=== PATIENT | male | born 1945 | race Caucasian/White ===

== ENCOUNTER 2018-04-19 05:27 | Inpatient (IN) | payer OTHER ==
[~2018-04-19] VITALS: Ht 170.2 cm; Wt 78.8 kg
[2018-04-19] VITALS (7 sets, daily range): BP systolic 101–161; BP diastolic 60–99
--- NOTE | ~2018-04-19 | HC ---
[facility] [place] [address] CONSULTATION Name: EDWARD THOMAS Room #: 360-P ADM IN M.R.#: [id number] Admission: 04/19/18 Attend Phys: Lila Couch Discharge: Date of : 49 Report #: [id number] THIS REPORT FOR: //name// CC: Sher Couch DATE OF SERVICE: 04/19/2018 HISTORY OF PRESENT ILLNESS: The patient is a 73-year-old white male, had complaints of the room spinning, problems with walking, slurred speech. He was noted to have ataxia and dysarthria. He was admitted to [facility]. Neurology saw him. MRI consistent with multicentric cerebellar CVAs. He was noted to have a right superior cerebellar CVA and a left inferior cerebellar CVA. The patient is right-handed. We are seeing him in rehabilitation medicine consultation. PAST MEDICAL HISTORY: Relatively benign. He has had an appendectomy, diskectomy. He does have a history of hypertension. He did have ulcers cauterized approximately a year ago. MEDICATIONS: Please see the full medication listing. This includes vitamins, herbals, and supplements. ALLERGIES: No known drug allergies. HABITS: No history of tobacco or alcohol abuse. SOCIAL HISTORY: He lives in a house with his , 3 steps in, did not utilize any gait aids. Both he and his are retired. He notes she could give him some assistance if needed. REVIEW OF SYSTEMS: Did not offer any current complaints of chest pain, shortness of breath, or abdominal discomfort. He notes he has some issues with his balance, some slurring of speech. PHYSICAL EXAMINATION: GENERAL: He is a pleasant 73-year-old white male of slender build, no obvious distress. VITAL SIGNS: Last recorded temperature is 98.5, pulse is 83, respirations 20, and blood pressure is 161/99. HEENT: Facies appeared symmetric. EOMs are full. He may have a little bit of lateral and gaze nystagmus. EXTREMITIES: He has functional range of motion of both upper extremities. He appears to have some difficulty with fine finger dexterity of the right upper extremity more than left upper extremity. Ggwxot-im-llwu was reasonably intact. Lower extremities, no focal calf swelling. Good strength probably a grade 4/[address] [address] CONSULTATION Name: EDWARD THOMAS Room #: [address] [place] [address] IN M.R.#: [id number] Admission: 04/19/18 Attend Phys: Lila Couch Discharge: Date of : 49 Report #: [id number] bilaterally to 4+/5 bilaterally. He appeared to do reasonably well with mtkn-wr-vpgl. No clonus. He does have concerns with his balance in getting up. ASSESSMENT: The patient is a 73-year-old white male with the following problem list: 1. Acute/subacute bilateral cerebellar cerebrovascular accidents. 2. Ataxia and dysarthria. 3. Gait instability. 4. Rule out dysphagia. Speech therapy currently involved. 5. Hypertension. 6. Prior medical history, otherwise, as noted above. PLAN: Therapy evaluations are currently underway. He certainly may be a good candidate for an acute in-hospital inpatient rehabilitation stay as he further medically stabilizes. We will need to see what his deficits are and proceed from there. We will be glad to follow along with you regarding his rehab therapy needs. By: 1305 0114 Jama Malloy MD /PMT
--- NOTE | ~2018-04-19 | EKG ---
[facility] [place] [address] ELECTROCARDIOGRAM REPORT Name: EDWARD THOMAS [id number] Admission: 04/19/18 Attend Phys: Discharge: Date of : 49 Report #: [id number] THIS REPORT FOR: //name// [facility] ED Test Date: 2018-04-19 Test Time: 06:13:10 Pat Name: EDWARD THOMAS Department: Room: Gender: M Compliance Coordinator: EMMANUEL : 1945 Requested By: James Farfan Order Number: [id number] MD: Arnold Cardona Measurements Intervals [place] Rate: 77 P: 28 MS: 192 QRS: -45 QRSD: 124 T: 73 QT: 436 QTc: 494 Interpretive Statements Sinus rhythm Left anterior hemiblock Cannot rule out inferior infarct, old Borderline prolonged corrected QT interval Baseline wander in lead(s) V3 Compared to ECG 09/06/2007 20:20:39 No significant change was found Electronically Signed On 04-19-2018 8:38:09 [facility] DIRECT[facility] by Arnold Cardona [email or web address] <ELECTRONICALLY SIGNED> By: Arnold Cardona MD, [facility] 04/19/18 0838 2 2 Arnold Cardona MD, [facility] /EPI
--- NOTE | ~2018-04-19 | LINQ ---
[facility] [address] [place] [address] LINQ PROCEDURE REPORT Name: MARTHAEDWARD ADAM Room #: 360-P [facility].#: [id number] Admission: 04/19/18 Attend Phys: Lila Marin Discharge: 04/21/18 Date of : 49 Date of Service: 04/23/18 1244 Report #: [id number] THIS REPORT FOR: //name// APPROVED REPORT Patient Location: Bedside Room #: Stress Nurse: Procedure: Insertion of a [employer] implantable loop recorder Indications: 89-year-old male patient with multiple cryptic strokes without evidence of a intracardiac shunt Brief description of procedure: After informed consent was obtained the patient brought to the cardiac prep and hold. The left chest was prepped and draped in usual sterile manner. Utilizing 1% lidocaine with epinephrine the proposed incision site was instilled as well as the proposed device track. A blade was then utilized for a small one quarter of an inch incision that was as made. A pocket was generated using blunt dissection. A small venous l bleeder was identified which was secured using a lorjjx-ff-ayivl stitch. The device was then inserted without complications. Subcutis tissue was sewn by simple interrupted sutures in the subcutaneous tissue was secured. Hemostasis had been achieved at this time. Skin was closed with a 30 absorbable suture in a subcuticular stitch. No complications described patient tolerate procedure well Estimated blood loss: 5 mL Complications: None Conclusion 1. Successful implantation of a [employer] implantable loop recorder. Serial number noted in the procedure log <ELECTRONICALLY SIGNED> By: Raf Bowie MD 04/23/18 1244 1244 1244 Raf Bowie MD /INF
--- NOTE | ~2018-04-19 | HC ---
[facility] [place] [address] CONSULTATION Name: EDWARD THOMAS Room #: 360-P ADM IN M.R.#: [id number] Admission: 04/19/18 Attend Phys: Lila Couch Discharge: Date of : 49 Report #: [id number] THIS REPORT FOR: //name// CC: Sher Couch DATE OF SERVICE: 04/19/2018 HISTORY OF PRESENT ILLNESS: This is a 73-year-old male patient who was evaluated by me in the Emergency Room for the possibility of stroke. I talked to Dr. Farfan, the Emergency Room physician on the phone and subsequently talked to Dr. Meza who took over from Dr. Farfan as Emergency Room physician. The patient went to sleep yesterday about 9:30 p.m. They did some squatting exercises. There was no involvement of the patient's neck or head during those exercises. There was no twisting of the neck. He got up at 4:30 and he tried to walk and could not walk. They thought that may have happened because the patient may have twisted his knees, but he also was noticed to have some speech difficulty. When he came, he indicates he has significantly improved. He was not able to walk when this happened at all and was not even able to stand. His speech is also much improved. Whether it is completely back to normal or not is not completely clear, but what I understand from them, it is. REVIEW OF SYSTEMS: Indicate he never had this kind of symptoms before. He is hypertensive. He takes his medication. He does not monitor his blood pressure. They have a blood pressure cuff at home. His takes blood pressure on a regular basis, but he does not. He does have some pain issues, especially with the back. He takes multiple medications for that. He also is on a statin. He was given aspirin in the Emergency Room after his swallowing was clear as I understand. I carried out 14-point review of systems. His rest of the 14-point review of system appears mostly unremarkable. He is not a known diabetic. He does not have any chest pain or respiratory difficulty. He denies any eye, ENT, respiratory, GI, , constitutional, dermatological, hematological, psychiatric, throat, allergic symptom associated with present symptomatology. PAST MEDICAL HISTORY: Negative for stroke. FAMILY HISTORY: Negative for early age stroke. SOCIAL HISTORY: He indicates he does not drink any alcohol or smoke. PHYSICAL EXAMINATION: Indicates he is alert, he is responsive, he can follow simple commands. His speech does not look markedly impaired, but I am not sure it is totally normal, but I do not know what his baseline is. Cranial nerve examination initially I thought there may be a little facial palsy, but he can smile symmetrically. He has no hemianopsia and rest of the cranial nerve examination is unremarkable. His strength, sensation, reflexes and tone looks [address] [address] CONSULTATION Name: EDWARD THOMAS Room #: 360-P [facility] IN M.R.#: [id number] Admission: 04/19/18 Attend Phys: Lila Couch Discharge: Date of : 49 Report #: [id number] unremarkable. He has no carotid bruit. There is no papilledema. There is no meningeal sign. There is no carotid bruit. He is reasonably well developed individual who does not have any dysmorphic features of eyes, ears and face. His vision and hearing looks adequate. His cardiac examination does not appear to be showing any abnormality. There is no respiratory difficulty or rhonchi. Blood pressure is 153/90, respirations 20, pulse is 83, temperature is 98.5. His odqosn-ed-zlau was unremarkable on my examination. LABORATORY DATA: His sodium is somewhat high at 147, his potassium is 3. Dr. Couch is going to address that. CT angio was reviewed with the radiologist and they indicated there is no abnormality at all. IMPRESSION: The patient's symptoms are suggestive of a stroke. However, so far, the workup is unremarkable. His time of onset will be at 9:30 when he was noticed last as normal. So, he is not a TPA candidate, especially tissue images are also unremarkable. I did discuss his options with him. I am still concerned with the possibility of stroke. Therefore, I had talked to the Emergency Room physician and asked them to get a stat MRI on him. They are going to do that and his further workup will depend upon the outcome of this testing. He is already scheduled for echocardiogram. RECOMMENDATIONS: 1. MRI of the brain. 2. Keep his blood pressure high. 3. Keep him well hydrated. 4. Await the MRI. 5. Echocardiogram. 6. We will await this workup and decide about the further management in this patient. Thank you very much for this referral and if you have any question, please feel free to contact me. this portion is added at the time of signing this note. I reviewed the patient's MRI films. MRI does show multicentric cerebellar CVA. Just to make sure that CT angiogram did not miss anything I went head and did an MRA also on this patient. That is also unremarkable. We need to workup this patient extensively for any source of embolization from the heart. This patient's blood pressure must be kept up and he should be adequately hydrated. More than 50 minutes of time was spent taking care of this patient today and majority of that time was spent counseling the patient and coordinating his care. <ELECTRONICALLY SIGNED> By: Kenyon Perdomo MD 04/19/18 1132 1007 1055 Kenyon Perdomo MD /nt
--- NOTE | ~2018-04-19 | 2DMMODE ---
[facility] [place] [address] 2 D/M-MODE ECHOCARDIOGRAM Name: THOMASEDWARD MEDINA Room #: 360-P ADM IN M.R.#: [id number] Admission: 04/19/18 Attend Phys: Lila Marin Discharge: Date of : 49 Date of Service: 04/19/18 1329 Report #: [id number] THIS REPORT FOR: //name// APPROVED REPORT Study performed: 04/19/2018 11:56:14 EXAM: Comprehensive 2D, Doppler, and color-flow Echocardiogram Patient Location: Bedside Room #: 360 Status: routine BSA: 1.95 HR: 84 bpm BP: 153/90 mmHg Rhythm: NSR Other Information Study Quality: Adequate Indications CVA/TIA Hypertension/HDD Echo Enhancing Agent Indication: Rule out Shunt Agent(s) / Amount(s) Used: Agitated Saline 7 cc 2D Dimensions RVDd: 34.91 mm IVSd: 9.83 (7-11mm) LVOT Diam: 21.91 (18-24mm) LVDd: 45.78 mm PWd: 9.88 (7-11mm) Ascending Ao: 38.54 (22-36mm) LVDs: 29.83 (25-40mm) Aortic Root: 34.74 mm IVC: 16.00 mm Volumes Left Atrial Volume (Systole) Single Plane 4CH: 37.96 mL Single Plane 2CH: 36.78 mL LA ESV Index: 21.00 mL/m2 Aortic Valve AoV Peak Morgan.: 1.09 m/s AO Peak Gr.: 4.74 mmHg LVOT Max P.19 mmHg LVOT Max V: 0.89 m/s JUNIE Vmax: 3.09 cm2 [facility] [address] [place] [address] 2 D/M-MODE ECHOCARDIOGRAM Name: EDWARD THOMAS DURANGO Room #: [address] [place] [address] IN ..#: [id number] Admission: 04/19/18 Attend Phys: Lila Marin Discharge: Date of : 49 Date of Service: 04/19/18 1329 Report #: [id number] Mitral Valve E/A Ratio: 0.4 MV Decel. Time: 235.90 ms MV E Max Morgan.: 0.36 m/s MV A Morgan.: 1.01 m/s MV PHT: 68.41 ms IVRT: 143.02 ms Pulmonary Valve PV Peak Morgan.: 0.97 m/s PV Peak Gr.: 3.84 mmHg Pulmonary Vein P Vein S: 0.42 m/s P Vein A: 0.34 m/s P Vein D: 0.23 m/s P Vein A Dur.: 83.0 msec P Vein S/D Ratio: 1.83 Tricuspid Valve TR Peak Morgan.: 2.37 m/s TR Peak Gr.: 22.53 mmHg PA Pressure: 28.00 mmHg Left Ventricle The left ventricle is normal size. Regional wall motion is not well visualized but grossly normal. There is normal left ventricular wall thickness. The left ventricular systolic function is normal. The left ventricular ejection fraction is within the normal range. LVEF is 55-60%. Grade I - abnormal relaxation pattern. Right Ventricle The right ventricle is normal size. The right ventricular systolic function is normal. Atria The left atrium size is normal. Interatrial septum is intact without evidence of ASD or PFO. The right atrium size is normal. Aortic Valve The aortic valve is mildly sclerotic. Trace aortic regurgitation. There is no aortic valvular stenosis. Mitral Valve The mitral valve is normal in structure. There is no mitral valve regurgitation noted. No evidence of mitral valve stenosis. Tricuspid Valve [address] [address] 2 D/M-MODE ECHOCARDIOGRAM Name: EDWARD THOMAS Room #: 360-P [facility] IN [facility]#: [id number] Admission: 04/19/18 Attend Phys: Lila Marin Discharge: Date of : 49 Date of Service: 04/19/18 1329 Report #: [id number] The tricuspid valve is normal in structure. There is trace tricuspid regurgitation. Estimated PAP 28 mmHg. There is no pulmonary hypertension. Pulmonic Valve The pulmonary valve is normal in structure. There is no pulmonic valvular regurgitation. Great Vessels The aortic root is normal in size. Ascending aorta is mildly dilated (3.9cm) IVC is normal in size and collapses >50% with inspiration. Pericardium There is no pericardial effusion. <Conclusion> The left ventricular systolic function is normal. Regional wall motion is not well visualized but grossly normal. LVEF is 55-60%. Mild diastolic dysfunction Interatrial septum is intact without evidence of ASD or PFO. The aortic valve is mildly sclerotic. Trace aortic regurgitation or stenosis The mitral valve is normal in structure. No mitral valve regurgitation There is trace tricuspid regurgitation. Estimated pulmonary artery pressure of 28 mmHg. Ascending aorta is mildly dilated (3.9cm) There is no pericardial effusion. <ELECTRONICALLY SIGNED> By: Arnold Cardona MD, FACC 04/19/181328 28 28 Arnold Cardona MD, FACC /INF
[~2018-04-19 05:27] MED LIST: ACIPHEX 20 MG T20 MG PO; AMBIEN 10 MG TA10 MG PO; AMITRIPTYLINE H10 M1 PO; AVODART0.5 MG PO; BENTYL 20 MG TA20 M1 PO; CADUET 10 MG-11 EACH PO; CELEBREX 200 M200 M1 PO; CYCLOBENZAPRINE10 MG PO; DEPAKOTE ER500 MG PO; GABAPENTIN100 MG PO; K-DUR10 MEQ PO; KEFLEX500 MG PO; LEVOTHYROXIN0.025 MG PO; LYRICA 50 MG50 MG PO; METOPROLOL 50 M50 M1 PO; NORCO 7.5-3251 EACH PO; NORVASC10 MG PO; PREDNISONE 20 M20 MG PO; TIZANIDINE HCL4 MG PO; TRAMADOL 50 MG50 MG PO
[2018-04-19 06:12] LABS: ABSOLUTE NEUTROPHILS 4.5 thou/uL (1.4-8.2); BASOPHILS 1.1 % (0.0-2.0); HEMATOCRIT 44.6 % (42.0-52.0); HEMOGLOBIN 15.5 gm/dL (14.0-18.0); LYMPHOCYTES 22.3 % (24.0-44.0); MCH 29.6 pg (26.0-34.0); MCHC 34.7 g/dL (28.0-37.0); MCV 85.2 fL (80.0-100.0); MONOCYTES 9.5 % (1.0-8.0); PLATELET COUNT 243 thou/uL (150-400); POLYS 63.1 % (36.0-66.0); RBC 5.24 mil/uL (4.50-6.00); WBC 7.1 thou/uL (4.0-11.0)
[2018-04-19 06:23] LABS: ANION GAP 13 mmol/L (7-16); BUN 13 mg/dL (7-18); CALCIUM 8.8 mg/dL (8.5-10.1); CHLORIDE 108 mmol/L (98-107); CO2 26 mmol/L (21-32); CREATININE 1.2 mg/dL (0.7-1.3); GLUCOSE 137 mg/dL (74-106); SODIUM 147 mmol/L (136-145)
[2018-04-19 06:26] LABS: APTT 23.8 Seconds (24.5-32.8); PROTIME 10.7 Seconds (9.3-11.4)
[2018-04-19 06:31] LABS: ALBUMIN 3.6 g/dL (3.4-5.0); SGOT 24 U/L (15-37); SGPT 39 U/L (30-65); TOTAL BILIRUBIN 0.5 mg/dL (<0.1-1.0); TOTAL PROTEIN 6.9 g/dL (6.4-8.2); TROPONIN-I <0.06 ng/mL (<0.06)
[2018-04-19] MEDS ORDERED: LIPITOR10 MG PO (08:42)
[2018-04-19] MEDS ORDERED: PROTONIX40 M2 PO (08:45)
[2018-04-19] MEDS ORDERED: NATURAL BALANCE15 M1 OPHTHALMIC (08:51)
[2018-04-19] MEDS ORDERED: DESONIDE CR. 1515 GM OPHTHALMIC (08:51)
[2018-04-19 09:22] LABS: URINE BILIRUBIN NEGATIVE (Negative); URINE BLOOD NEGATIVE (Negative); URINE CLARITY CLEAR; URINE COLOR YELLOW; URINE GLUCOSE-RANDOM* NEGATIVE (Negative); URINE KETONES NEGATIVE (Negative); URINE LEUKOCYTES-REFLEX NEGATIVE (Negative); URINE NITRITE-REFLEX NEGATIVE (Negative); URINE PROTEIN (DIPSTICK) NEGATIVE (Negative); URINE UROBILINOGEN 0.2 E.U./dl (0.2-1.0)
[2018-04-19 09:27] LABS: AMP/METHAMP Negative (Negative); BARBITURATES Negative (Negative); BENZODIAZEPINES Negative (Negative); COCAINE Negative (Negative); METHADONE Negative (Negative); OPIATES Negative (Negative); PCP Negative (Negative)
[2018-04-19 10:23] LABS: CHOLESTEROL 140 mg/dL (<200); HDL CHOLESTEROL 33 mg/dL (>40); LDL CHOLESTEROL 69 mg/dL (<100); TC:HDL 4.2 Ratio (Not establshd); TRIGLYCERIDE 191 mg/dL (<150); VLDL 38 mg/dL (<40)
[2018-04-20 04:00] VITALS: BP 16/89; BP 160/89
[2018-04-20 07:40] VITALS: BP 143/96
[2018-04-20 11:48] LABS: ALBUMIN 3.9 g/dL (3.4-5.0); CALCIUM 8.8 mg/dL (8.5-10.1); CREATININE 0.9 mg/dL (0.7-1.3); POTASSIUM 3.2 mmol/L (3.5-5.1); TOTAL BILIRUBIN 0.7 mg/dL (<0.1-1.0); TOTAL PROTEIN 7.2 g/dL (6.4-8.2)
[2018-04-20 12:11] VITALS: BP 165/86
[2018-04-20 20:00] VITALS: BP 151/93
[2018-04-21 04:05] VITALS: BP 145/94
[2018-04-21 06:42] LABS: CALCIUM 8.9 mg/dL (8.5-10.1); MAGNESIUM 2.2 mg/dL (1.8-2.4); POTASSIUM 3.3 mmol/L (3.5-5.1)
[2018-04-21 08:07] VITALS: BP 138/88
[2018-04-21] MEDS ORDERED: KEFLEX500 M1 PO (09:23)
[2018-04-21] MEDS ORDERED: LOPRESSOR50 PO (09:24)
[2018-04-21] MEDS ORDERED: ASPIRIN325 PO (09:25)
[2018-04-21 13:46] VITALS: BP 153/85
== END 2018-04-21 15:39 | DRG 64 ==
LOC: ER 05:27 → EROBS 08:09 → 3W 08:09 → ENTRNSPT 04-21 15:27 → EDTRNSPTSTS 04-21 15:28 → 3W 04-21 15:39
PROVIDERS: Emergency Medicine; Hospitalist; Nurse Practitioner Acute Care; Psychiatry & Neurology Neuromuscular Medicine
DX: I63.9 Cerebral infarction, unspecified (principal); N17.0 Acute kidney failure with tubular necrosis; I10 Essential (primary) hypertension; R47.1 Dysarthria and anarthria; R27.0 Ataxia, unspecified; R26.9 Unspecified abnormalities of gait and mobility; J32.9 Chronic sinusitis, unspecified; N40.0 Benign prostatic hyperplasia without lower urinary tract symptoms; M54.16 Radiculopathy, lumbar region; E03.9 Hypothyroidism, unspecified; R91.8 Other nonspecific abnormal finding of lung field; E87.6 Hypokalemia; Z90.49 Acquired absence of other specified parts of digestive tract; Z79.899 Other long term (current) drug therapy
CPT/HCPCS: 10879

== ENCOUNTER 2018-04-21 11:34 | Inpatient (IN) | payer OTHER ==
[~2018-04-21] VITALS: Ht 170.2 cm; Wt 77.6 kg
--- NOTE | ~2018-04-21 | H ---
[facility] [place] [address] HISTORY AND PHYSICAL Name: EDWARD THOMAS Room #: 509-P [facility] IN M.R.#: [id number] Admission: 04/21/18 Attend Phys: Jama Malloy MD Discharge: 04/28/18 Date of : 49 Report #: [id number] THIS REPORT FOR: //name// CC: Jama Jackson DATE OF SERVICE: 04/21/2018 Please see my prior consult note and the full history and physical from today. HISTORY OF PRESENT ILLNESS: The patient has not been admitted for acute in-hospital inpatient rehabilitation. He has acute bilateral cerebellar CVAs with ataxia and dysarthria. He has a history of hypertension, sinusitis, and hypokalemia. PAST MEDICAL HISTORY: Please see the above dictation. SOCIAL HISTORY: Please see the above dictation. MEDICATIONS: Please see the full medication list. This includes vitamins, herbals, and supplements. REVIEW OF SYSTEMS: Did not offer any current complaints of chest pain, shortness of breath or abdominal discomfort. PHYSICAL EXAMINATION: GENERAL: A 73-year-old white male in no obvious distress. VITAL SIGNS: Temperature 98, pulse 62, respirations 17, blood pressure 142/84. NEUROLOGIC: Alert. He is pleasant, follows commands without obvious difficulty. Noted to be right handed. He has right-sided coordination deficits that appear more prominent than on the left. He has more difficulty with fine finger dexterity and definitely has more issues with right lower extremity Ncyb-va-bquu. Strength of the upper and lower extremities is probably a grade 4/5. I could not detect any obvious focal sensory decrease. DTRs were 1. CHEST: Sounded clear to auscultation. CARDIOVASCULAR: Regular rate and rhythm. ABDOMEN: Bowel sounds positive, nontender. GENITOURINARY AND RECTAL: Deferred. ASSESSMENT: 1. Acute subacute bilateral cerebellar cerebrovascular accidents. 2. Ataxia and dysarthria. 3. Gait instability. 4. Hypertension. PLAN: The patient has been admitted for acute in-hospital inpatient rehabilitation. From a postadmission physician evaluation perspective, there [address] [address] HISTORY AND PHYSICAL Name: EDWARD THOMAS ADAM Room #: 509-P [facility] IN ..#: [id number] Admission: 04/21/18 Attend Phys: Jama Malloy MD Discharge: 04/28/18 Date of : 49 Report #: [id number] are no relevant changes since the preadmission screening. Please see the above review of prior and current medical and functional conditions and comorbidities. As far as risk of complications, he has the above noted comorbidities. Initial plan of care involves the interdisciplinary acute inpatient rehabilitation program with the goal of maximizing the patient's functional independence, so that he can hopefully return back to his prior living situation. Measurable functional goals would be for the patient to become modified independent with transfers, mobility, ADLs as well as communication issues, so that he can return back to the home setting. Prognosis is reasonably good with estimated length of stay probably at least 7-10 days and likely longer as warranted. Potential barriers would include the patient's multiple medical comorbidities and decreased functional status. The patient meets diagnostic criteria for an acute in-hospital inpatient rehabilitation stay. He meets the medical necessity criteria and we will have the media sales consultant physicians involved. He does have the tolerance for therapies and has appropriate discharge goals back to the home setting. <ELECTRONICALLY SIGNED> By: Jama Malloy MD 04/30/18 1031 1142 1155 Jama Malloy MD /[facility]
--- NOTE | ~2018-04-21 | H ---
[facility] [place] [address] HISTORY AND PHYSICAL Name: EDWARD THOMAS Room #: 509-P ADM IN M.R.#: [id number] Admission: 04/21/18 Attend Phys: Jama Malloy MD Discharge: Date of : 49 Report #: [id number] THIS REPORT FOR: //name// CC: Jama Jackson DATE OF SERVICE: 04/21/2018 HISTORY OF PRESENT ILLNESS: This is a 73-year-old gentleman who presented to the Emergency Department with complaints of slurred speech, difficulty walking and the room spinning. He was noted to have ataxia and dysarthria. MRI was consistent with a multicentric cerebellar CVA with a right superior cerebellar CVA and a left inferior cerebellar CVA. He was evaluated by Neurology and Cardiology. He underwent an implanted loop recorder device on 04/21/2018 by Cardiology for further heart monitoring due to his symptoms and need for medical oversight. He is now admitted to Acute Inpatient Rehabilitation for physical, occupational and speech therapies. Today, the patient denies any headache, dizziness or lightheadedness. He denies cough or shortness of air. He denies nausea, vomiting, abdominal pain or constipation. He denies difficulties with urination. He denies lower extremity swelling. HABITS: The patient is a nonsmoker, nondrinker. No illicit drug use. CODE STATUS: Full code. social hx: pt lives at home with in 3 story house. bedroom/bathroom on 3rd floor. independent with all ADLs and shares IADLs. utilized no AD premorbidly. 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 ALLERGIES: No known drug allergies. CURRENT MEDICATIONS: Lyrica 100 mg daily, dutasteride 0.5 mg daily, aspirin 325 mg daily, Norvasc 10 mg daily, potassium chloride 40 mEq one time today, Protonix 40 mg daily, Tylenol 650 q. 6 hours p.r.n., tramadol 150 mg twice a day, Lyrica 50 mg twice a day, ophthalmic desonide twice a day, metoprolol 50 mg twice a day, Lipitor 10 mg at bedtime, amitriptyline 20 mg at bedtime, cephalexin 500 mg q. 6 hours x 20 doses, tizanidine 4 mg at bedtime p.r.n., senna 8.6 mg daily p.r.n. and Colace 100 mg twice a day p.r.n. REVIEW OF SYSTEMS: Remainder of his 14-point review of systems is negative, except as listed in the HPI. PHYSICAL EXAMINATION: VITAL SIGNS: Blood pressure 142/84, respirations 17, pulse of 62, temperature 36.7 and 94% oxygen sat on room air. [address] [address] HISTORY AND PHYSICAL Name: EDWARD THOMAS Room #: 509-P [facility] IN M.R.#: [id number] Admission: 04/21/18 Attend Phys: Jama Malloy MD Discharge: Date of : 49 Report #: [id number] GENERAL: He is awake, alert. He is oriented x 4. He is in no acute distress. He is on room air. HEAD: Normocephalic. EYES: EOMs are intact. ENT: He does have positive sinus tenderness to palpation. No noted rhinorrhea. Throat clear. CHEST: Lungs are clear to auscultation. No crackles, no wheezes. He does have a gauze dressing to his left upper chest wall from his implanted loop recorder. The site looks clean, dry and intact. There is no noted erythema. CARDIAC: S1, S2 regular rate and rhythm. ABDOMEN: Bowel sounds are positive. Soft, nontender and nondistended. GENITOURINARY: No CVA tenderness. EXTREMITIES: He has functional range of motion in upper and lower extremities. Right upper difficulty with fine finger dexterity, more so than the left. Luakef-vx-exdf testing intact. No noted clonus. Equal assistant laboratory director strength. Bilateral lower extremities, no edema. Able to lift to anti-gravity. Negative Homans sign. No clonus. He has iqg-ld-cnmug transfers with min assist. He does have some noted unsteadiness, mod assist to ambulate 350 feet with a front-wheeled walker. NEUROLOGIC: He does have some dysarthric speech. LABORATORY DATA: From 04/22/2018, WBC is 8.9, hemoglobin 15.9 and platelets 251,000. Sodium 142, potassium 3.3, BUN 20, creatinine 1.0 and calcium 8.5. ASSESSMENT: 1. Acute bilateral cerebellar cerebrovascular accidents. 2. Ataxia. 3. Dysarthria. 4. Hypertension. 5. Sinusitis. 6. Hypokalemia. 7. Aortic root dilation. 8. Possible underlying arrhythmia, status post implanted loop recorder on 04/21/2018. PLAN: The patient is admitted to Acute Inpatient Rehabilitation for physical, occupational and speech therapies. He will have his hospitalist and Cardiology Services continue to follow him for any acute medical management. He will have 7th grade social studies teacher assist with discharge planning needs. Please see extensive orders. By: 1111 1300 Shannan Hubbard, CARMEN /nt
--- NOTE | ~2018-04-21 | HC ---
[facility] [address] [place] [address] CONSULTATION Name: EDWARD THOMAS Room #: 509-P ADM IN M.R.#: [id number] Admission: 04/21/18 Attend Phys: Jama Malloy MD Discharge: Date of : 49 Report #: [id number] THIS REPORT FOR: //name// CC: Jama Jackson DATE OF SERVICE: 04/24/2018 ATTENDING PHYSICIAN: Jama Malloy MD [employer]ATING: Mick Zayas, PhD CLINICAL PRESENTATION: The patient is a 73-year-old male admitted to the rehabilitation unit at [facility] for comprehensive inpatient rehabilitation program to improve functional mobility, activities of daily living and self-care and mental status secondary to deficits from a cerebrovascular accident. He presented to the Emergency Room with slurred speech and problems with walking and dizziness. He reports having been at his home getting up from his bed when he noticed severe difficulty with movement and dizziness. He was brought to the hospital through emergency services and an MRI identified a multicentric cerebellar CVA with right superior cerebellar and left inferior cerebellar cerebrovascular accident. His diagnoses on this admission to rehab include acute bilateral cerebellar cerebrovascular accidents, ataxia, dysarthria, hypertension, sinusitis, hypokalemia, aortic root dilation and possible underlying arrhythmia, status post implanted loop recorder. A complete description of his medical condition, history and medication can be found in his medical record. Neuropsychological consultation was requested to provide assistance in the assessment of cognitive and emotional status and to provide recommendations and services. Prior to this most recent medical event, he was living independently with his in their home. He has 3 children. The patient is a college graduate. He is a retired and had been continuing work with [employer] up until this recent stroke. There is no reported history of depression or anxiety. There is no history of alcohol/drug abuse. TECHNIQUES UTILIZED: Clinical interview, review of medical records, staff consultation and behavioral observation, mini mental status exam 2 standard version, verbal fluency assessment (letter and category), brief abstract reasoning test and clock drawing). EXAMINATION FINDINGS: The patient was alert and cooperative with the assessment. There is no evidence of aphasia. His thoughts are logical and goal oriented. There is no evidence of thought disorder. He does not report auditory or visual hallucinations. He denies subjective anxiety or depression. He indicates that sleep, appetite, energy level, memory and word finding are all [address] [address] CONSULTATION Name: EDWARD THOMAS Room #: 509-P [facility] IN M.R.#: [id number] Admission: 04/21/18 Attend Phys: Jama Malloy MD Discharge: Date of : 49 Report #: [id number] within normal limits; however, he was taking Prevagen for his memory prior to the stroke. His performance on the MMSE 2 brief version is within normal limits with a raw score of 14-16. He was 2/3 for initial registration secondary to some difficulty with hearing. He was 5/5 for orientation to time and 5/[address] He was 2/3 for immediate recall of 3 items after a brief time delay and distraction. Performance on the MMSE 2 standard version is within normal limits with a raw score of 27 of 30. The patient had difficulty in copying a simple geometric design. Verbal fluency assessment reveals mild deficits with letter fluency with a raw score of 18, T score of 38. Category fluency was in the moderate range of impairment with a raw score of 25 and a T score of 26. Overall, total fluency is in the borderline range with a raw score of 43 and a T score of 32, which is at the fourth percentile. Brief abstract reasoning test was 4/8 suggesting impairment in higher level abstract reasoning. The patient is alert and oriented; however, deficits in verbal fluency with greater impairment in category fluency are noted. Decreased thought organization necessary for expressive speech along with abstract reasoning are suggested. Semantic fluency is also showing a greater deficit in phonemic fluency, which often can be seen in dysfunction within the medial temporal lobe. Clock drawing was impaired with both number and hand placement. 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 DIAGNOSTIC IMPRESSION: Vascular neurocognitive disorder, without behavior disorder -- extent to be determined, likely in the mild to moderate range. RECOMMENDATIONS: The patient will benefit from further neuropsych assessment upon discharge. Deficits are suggested in neurocognitive functioning that are often seen in subcortical cerebral dysfunction and consistent with having had cerebellar stroke. The patient will likely require increased supervision that includes assistance in the management of medication, nutrition and finances upon discharge. Followup neuropsych assessment will help to clarify the extent of neurocognitive deficits. Driving will be a safety concern. The patient appears to have decreased insight into the extent of his deficits, which places him at an increased safety risk. [facility] [address] [place] [address] CONSULTATION Name: EDWARD THOMAS Room #: 509-P [facility] IN M.R.#: [id number] Admission: 04/21/18 Attend Phys: Jama Malloy MD Discharge: Date of : 49 Report #: [id number] Thank you very much for allowing me to provide the consultation on this patient. By: [id number] Mick Zayas, PhD /nt
--- NOTE | ~2018-04-21 | PLAN ---
[facility] [place] [address] [address] REHAB UNIT PLAN OF CARE Name: EDWARD THOMAS Room #: 509-P [facility] IN M.R.#: [id number] Admission: 04/21/18 Attend Phys: Jama Malloy MD Discharge: 04/28/18 Date of : 49 Report #: [id number] THIS REPORT FOR: //name// CC: Jama Jackson DATE OF SERVICE: 04/23/2018 PROGRESS NOTE AND OVERALL PLAN OF CARE SUBJECTIVE: The patient is seen back today in followup. He is in no distress. Last recorded temperature 97.5, pulse 77, respirations 18, blood pressure 139/85. He is alert, pleasant. He is working in therapies with transfers supervision level. Gait is min assist without a device. He has definite decreased balance. In occupational therapy, upper body dressing, supervision with lower body, min assist. In speech therapy, he has mild comprehensive deficits. He is on a regular diet with thin liquids. He has mild expressive deficits as well. ASSESSMENT: 1. Bilateral cerebellar cerebrovascular accidents. 2. Ataxia with dysarthria. 3. Gait instability. 4. Hypertension. PLAN: The overall plan of care is based on the preadmission screen, post-admission physician evaluation and information garnered from therapy assessments. 1. Estimated length of stay is probably 7-10 days, likely longer if needed. 2. Medical prognosis is reasonably good. 3. Anticipated interventions includes the interdisciplinary acute inpatient rehabilitation program with PT, OT, speech rehab nursing assisting regarding medication management, skin care prophylaxis, bowel and bladder issues and nursing education. Case management is involved as well as the interdisciplinary acute inpatient rehabilitation team and the consulting physicians. 4. Anticipated functional outcomes would be for the patient to become modified independent with transfers, mobility, ADLs, improved cognition, communication, so that he can return back to the home setting. 5. Discharge destination would be back home where he lives with his . 6. Expected therapy by discipline includes PT, OT and speech 1 hour per day each five days a week throughout the duration of the acute inpatient rehabilitation stay. <ELECTRONICALLY SIGNED> By: Jama Malloy MD 04/30/18 [id number] Jama Malloy MD /nt
[~2018-04-21 11:34] MED LIST changes: +ASPIRIN325 PO; +DESONIDE CR. 1515 GM OPHTHALMIC; +KEFLEX500 M1 PO; +LIPITOR10 MG PO; +LOPRESSOR50 PO; +NATURAL BALANCE15 M1 OPHTHALMIC; +PROTONIX40 M2 PO
[2018-04-21 19:40] VITALS: BP 153/96
[2018-04-22 04:01] LABS: CALCIUM 8.5 mg/dL (8.5-10.1); POTASSIUM 3.3 mmol/L (3.5-5.1)
[2018-04-22 04:35] LABS: HEMATOCRIT 45.8 % (42.0-52.0); HEMOGLOBIN 15.9 gm/dL (14.0-18.0); MCH 29.8 pg (26.0-34.0); MCHC 34.8 g/dL (28.0-37.0); MCV 85.5 fL (80.0-100.0); RBC 5.36 mil/uL (4.50-6.00); RDW 13.9 % (10.5-14.5); WBC 8.9 thou/uL (4.0-11.0)
[2018-04-22 08:44] VITALS: BP 142/84
[2018-04-22 20:48] VITALS: BP 139/85
[2018-04-23 11:51] VITALS: BP 145/82
[2018-04-23 19:24] VITALS: BP 122/81
[2018-04-24 06:01] LABS: HEMATOCRIT 45.4 % (42.0-52.0); HEMOGLOBIN 15.6 gm/dL (14.0-18.0); MCH 29.4 pg (26.0-34.0); MCHC 34.4 g/dL (28.0-37.0); MCV 85.5 fL (80.0-100.0); PLATELET COUNT 262 thou/uL (150-400); RBC 5.31 mil/uL (4.50-6.00); RDW 13.7 % (10.5-14.5); WBC 7.6 thou/uL (4.0-11.0)
[2018-04-24 06:05] LABS: CALCIUM 8.3 mg/dL (8.5-10.1); CREATININE 0.9 mg/dL (0.7-1.3); MAGNESIUM 2.1 mg/dL (1.8-2.4); POTASSIUM 3.2 mmol/L (3.5-5.1)
[2018-04-24 06:52] LABS: ANISOCYTOSIS 1+
[2018-04-24 08:09] VITALS: BP 135/92
[2018-04-24 19:30] VITALS: BP 131/77
[2018-04-25 07:55] VITALS: BP 124/87
[2018-04-25 19:20] VITALS: BP 128/63
[2018-04-26 07:53] VITALS: BP 132/79
[2018-04-26 20:52] VITALS: BP 133/78
[2018-04-27 05:57] LABS: CALCIUM 8.7 mg/dL (8.5-10.1); CREATININE 1.2 mg/dL (0.7-1.3); POTASSIUM 3.6 mmol/L (3.5-5.1)
[2018-04-27 09:43] VITALS: BP 129/80
[2018-04-27 19:15] VITALS: BP 135/77
[2018-04-28] MEDS ORDERED: COLACE100 MG PO (08:15)
[2018-04-28 10:31] VITALS: BP 135/77
[2018-04-28 10:47] VITALS: BP 135/77
[2018-04-28 11:04] VITALS: BP 129/80
== END 2018-04-28 11:51 | disposition home or self-care (01) | DRG 64 ==
LOC: ENTRNSPT 04-28 11:19 → EDTRNSPTSTS 04-28 11:21
PROVIDERS: Nurse Practitioner; Nurse Practitioner Family; Physical Medicine & Rehabilitation
DX: I63.9 Cerebral infarction, unspecified (principal); N17.0 Acute kidney failure with tubular necrosis; R27.0 Ataxia, unspecified; R47.1 Dysarthria and anarthria; I10 Essential (primary) hypertension; J32.9 Chronic sinusitis, unspecified; E87.6 Hypokalemia; I77.819 Aortic ectasia, unspecified site; F01.50 Vascular dementia, unspecified severity, without behavioral disturbance, psychotic disturbance, mood disturbance, and anxiety; G47.33 Obstructive sleep apnea (adult) (pediatric); G89.29 Other chronic pain; M54.9 Dorsalgia, unspecified
CPT/HCPCS: 10112

== ENCOUNTER → 2019-06-06 | Outpatient (CLI) | payer OTHER ==
[~2019-06-06] MED LIST changes: +COLACE100 MG PO
== END ==
LOC: SJCVC 09:22
DX: I45.10 Unspecified right bundle-branch block (principal); I21.9 Acute myocardial infarction, unspecified; I10 Essential (primary) hypertension; E78.5 Hyperlipidemia, unspecified; E11.9 Type 2 diabetes mellitus without complications; E78.00 Pure hypercholesterolemia, unspecified; Z79.82 Long term (current) use of aspirin; Z79.899 Other long term (current) drug therapy; Z86.73 Personal history of transient ischemic attack (TIA), and cerebral infarction without residual deficits

== ENCOUNTER → 2021-06-03 | Outpatient (CLI) | payer OTHER | LOC: SJCVCIMAG 07:05 | PROVIDERS: ATTEND Internal Medicine | DX: R94.31 Abnormal electrocardiogram [ECG] [EKG] (principal); I44.4 Left anterior fascicular block; I10 Essential (primary) hypertension; E78.5 Hyperlipidemia, unspecified; G47.33 Obstructive sleep apnea (adult) (pediatric); R40.0 Somnolence; E78.00 Pure hypercholesterolemia, unspecified; G43.909 Migraine, unspecified, not intractable, without status migrainosus; M47.9 Spondylosis, unspecified; Z99.89 Dependence on other enabling machines and devices; Z79.82 Long term (current) use of aspirin; Z79.899 Other long term (current) drug therapy; Z82.49 Family history of ischemic heart disease and other diseases of the circulatory system; Z86.73 Personal history of transient ischemic attack (TIA), and cerebral infarction without residual deficits ==